=== PATIENT | female | born 1940 | race Caucasian/White ===

== ENCOUNTER 2017-05-04 05:33 | Outpatient (CLI) | payer MEDICARE, OTHER ==
[~2017-05-04] VITALS: Ht 170.2 cm; Wt 83.9 kg
[2017-05-04] MEDS ORDERED: GLIM2TAB PO (10:13)
[2017-05-04] MEDS ORDERED: BENA20TA2 PO (10:13)
[2017-05-04] MEDS ORDERED: METF1000 PO (10:13)
[2017-05-04] MEDS ORDERED: CANA300T PO (10:13)
[2017-05-04] MEDS ORDERED: ALLO300T2 PO (10:13)
[2017-05-04] MEDS ORDERED: CANA100T PO (10:18)
== END 2017-05-04 10:42 ==
LOC: PREOP 05:33
PROVIDERS: ATTEND Orthopaedic Surgery
DX: Z01.818 Encounter for other preprocedural examination (principal); G56.01 Carpal tunnel syndrome, right upper limb

== ENCOUNTER 2017-05-09 08:54 | Day surgery (SDC) | payer MEDICARE, OTHER ==
[~2017-05-09] VITALS: Ht 170.2 cm; Wt 83.9 kg
[~2017-05-09 08:54] MED LIST: ALLO300T2 PO; BENA20TA2 PO; CANA100T PO; CANA300T PO; GLIM2TAB PO; METF1000 PO
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
[2017-05-09] MEDS ORDERED: NEO/POLY/BAC (NEOSPORIN) OINT 15 GM TUBE ONE (09:00)
[2017-05-09] MEDS ORDERED: LIDOCAINE 1% INJ 20 ML (XYLOCAINE) VIAL ONE (09:00)
[2017-05-09] MEDS ORDERED: BUPIVACAINE 0.5% 30 ML (SENSORCAINE) VIAL ONE (09:00)
[2017-05-09] MEDS ORDERED: ceFAZolin 2 GM/NS 50 ML IV ONE (09:15)
[2017-05-09] MEDS ORDERED: CATHETER FLUSH 10 ML SYR IV PRN (09:15)
[2017-05-09] MEDS ORDERED: MIDAZOLAM 2 MG/2 ML (VERSED) VIAL ONE (09:20)
[2017-05-09 09:35] VITALS: BP 136/74
[2017-05-09] MEDS ORDERED: LACTATED RINGERS 1,000 ML IV PRN (09:47)
[2017-05-09] MEDS ORDERED: fentaNYL INJECTION 100 MCG/2 ML AMP ONE (09:51)
--- NOTE | 2017-05-09 09:58 | Progress Note-Pre Operative ---
Pre-Operative Progress Note H&P Reviewed The H&P was reviewed, patient examined and no changes noted. Date Seen by Provider: May 09, 2017 Time Seen by Provider: 09:50 Date H&P Reviewed: May 09, 2017 Time H&P Reviewed: 09:50 Pre-Operative Diagnosis: Carpal tunnel syndrome right wrist SHAJI DANIELS DO May 09, 2017 9:58 am
--- NOTE | 2017-05-09 10:34 | Progress Note-Post Operative ---
Post-Operative Progess Note Surgeon (s)/Copy Preparer (s) Surgeon SHAJI DANIELS DO Copy Preparer: Harry Roldan [facility]IST[facility] Pre-Operative Diagnosis Carpal tunnel syndrome right wrist Post-Operative Diagnosis same Procedure & Operative Findings Date of Procedure 05/09/17 Procedure Performed/Findings endoscopic carpal tunnel release right wrist Anesthesia Type TIVA Estimated Blood Loss Estimated blood loss (mL): minimal Specimens/Packing Specimens Removed none SHAJI DANIELS DO May 09, 2017 10:34 am
[2017-05-09] MEDS ORDERED: PROPOFOL INJECTION 50 ML IV ONE (10:36)
--- NOTE | 2017-05-09 10:39 | Discharge Inst-Simple/Standard ---
Discharge Inst-Standard Discharge Medications New, Converted or Re-Newed RX: RX on Chart Patient Instructions/Follow Up Plan of Care/Instructions/FU: f/u 8 days, [facility] for further info Activity as Tolerated: Yes Discharge Diet: No Restrictions SHAJI DANIELS DO May 09, 2017 10:39 am
[2017-05-09] MEDS ORDERED: morphine INJ 10 MG/ML 1ML (SYR OR VIAL) IVP PRN (10:45)
[2017-05-09] MEDS ORDERED: MEPERIDINE (DEMEROL) INJ 50 MG/ML IVP PRN (10:45)
[2017-05-09] MEDS ORDERED: ONDANSETRON 4 MG/2 ML (SDV) Z0FRAN IVP PRN (10:45)
[2017-05-09 11:05] VITALS: BP 89/59
[2017-05-09] MEDS ORDERED: HYDR-757 PO (11:14)
[2017-05-09 11:35] VITALS: BP 108/60
[2017-05-09 13:00] VITALS: BP 108/60
--- NOTE | 2017-05-10 02:57 | OPERATIVE REPORT ---
DATE OF SERVICE: 05/09/2017 PREOPERATIVE DIAGNOSIS: Carpal tunnel syndrome, right wrist. POSTOPERATIVE DIAGNOSIS: Carpal tunnel syndrome, right wrist. PROCEDURE: Endoscopic carpal tunnel release, right wrist. SURGEON: Gibson Daniels DO. TAX CONSULTANT: SHAN Flores. ANESTHESIA: TIVA. INDICATIONS AND FINDINGS: The patient is a 77-year-old female seen with chief complaint of progressive pain, numbness and tingling in the median nerve distribution of the right hand, nonresponsive conservative treatment. The patient was taken to surgery where an endoscopic carpal tunnel release was performed on the right without complication. PROCEDURE IN DETAIL: The patient was taken to the operating room and placed supine on the operating table and IV sedation was provided. A well-padded pneumatic tourniquet was placed above the upper aspect of the right arm. A ChloraPrep and sterile drape of the right upper extremity was performed. The proposed incision sites were infiltrated with 1% lidocaine mixed with Marcaine 0.5% solution. The arm was elevated, exsanguinated and the tourniquet was inflated to 250 mmHg pressure. A transverse incision was made through the distal wrist crease. Under loupe magnification visualization, the incision was deepened, the superficial antebrachial fascia was identified and this was divided longitudinally, proximally and distally to the transverse carpal ligament which was divided initially under direct visualization. A blunt probe was then placed through the wrist incision beneath the transverse carpal ligament and advanced in the palmar aspect of the hand where a 6 mm longitudinal incision was made proximal to Monge's cardinal line bordering the radial aspect of the ring finger. The probe was advanced through this incision. The probe was then removed. Blunt obturator and cannula were then inserted through the wrist incision beneath the transverse carpal ligament through the palmar incision in the right hand. The arthroscope was inserted and the undersurface of the transverse carpal ligament was identified and probed. A triangle shaped scalpel was then inserted into the cannula and the transverse carpal ligament was divided longitudinally under direct visualization. The cannula was removed. The wound was irrigated with normal saline solution after deflating the tourniquet. Skin incisions were closed simply with interrupted 4-0 nylon suture and Adaptic Neosporin bulky dressing was placed about the right wrist. The patient was awake and was transported to postop recovery with anesthesia personnel present in satisfactory condition. Job ID: [id number] DocumentID: [id number] Dictated Date: 05/09/2017 22:18:27 [employer] Person Date: 05/10/2017 02:56:44 Dictated By: GIBSON DANIELS DO
== END 2017-05-09 13:00 | disposition home or self-care (01) ==
LOC: SDC 08:54
PROVIDERS: ATTEND Orthopaedic Surgery
DX: G56.01 Carpal tunnel syndrome, right upper limb (principal); E11.43 Type 2 diabetes mellitus with diabetic autonomic (poly)neuropathy; I10 Essential (primary) hypertension; M10.9 Gout, unspecified; Z79.84 Long term (current) use of oral hypoglycemic drugs; Z79.899 Other long term (current) drug therapy
CPT/HCPCS: 82962; 87081